=== PATIENT | male | born 1990 | race Caucasian/White ===

== ENCOUNTER 2016-09-09 13:31 | Emergency (ER) | payer OTHER ==
[~2016-09-09] VITALS: Ht 180.3 cm; Wt 90.0 kg
--- NOTE | 2016-09-09 13:45 | PD ---
HPI Chief Complaint: BA Time Seen by Provider: 13:45 Travel History International Travel<30 days: No Contact w/Intl Traveler<30days: No Traveled to known affect area: No History of Present Illness HPI 25-year-old male presents to the emergency department as a transfer Snider act from [facility]. Patient states he is not suicidal but would like detox. He has relapsed on cocaine and alcohol. States that he did make suicidal statements last evening while under the influence of alcohol but truly just wants detox. Denies any acute medical needs at this time. [facility] Past Medical History Medical History: Denies Significant Hx Social History Alcohol Use: Yes Tobacco Use: Yes Substance Use: Yes Review of Systems Except as stated in HPI: all other systems reviewed are Neg Physical Exam Narrative GENERAL: Alert male patient, in no acute distress SKIN: Focused skin assessment warm/dry. HEAD: Atraumatic. Normocephalic. EYES: Pupils equal and round. No scleral icterus. No injection or drainage. ENT: No nasal bleeding or discharge. Mucous membranes pink and moist. NECK: Trachea midline. No JVD. CARDIOVASCULAR: Regular rate and rhythm. No murmur appreciated. RESPIRATORY: No accessory muscle use. Clear to auscultation. Breath sounds equal bilaterally. GASTROINTESTINAL: Abdomen soft, non-tender, nondistended. Hepatic and splenic margins not palpable. MUSCULOSKELETAL: No obvious deformities. No clubbing. No cyanosis. No edema. NEUROLOGICAL: Awake and alert. No obvious cranial nerve deficits. Motor grossly within normal limits. Normal speech. Data Data Last Documented VS Vital Signs Date Time Temp Pulse Resp B/P Pulse Ox O2 Delivery O2 Flow Rate FiO2 09/09/16 14:30 75 16 141/75 100 09/09/16 13:52 98.6 Orders Psych Screen (09/09/16 13:45) [facility] Medical Decision Making Medical Screen Exam Complete: Yes Emergency Medical Condition: Yes Medical Record Reviewed: Yes Differential Diagnosis Substance abuse versus mood disorder versus personality disorder versus adjustment reaction disorder Narrative Course 25-year-old male presents to the emergency department as a transfer from [place] under a Snider act. Patient adamantly denies suicidal or homicidal ideations. He is medically cleared there to see psychiatry here. Dr. De La Cruz has seen and evaluated the patient. Please refer to his documentation. Patient will be discharged at this time, encouraged to seek detox. He agrees to return immediately with any acute worsening of symptoms. Diagnosis Primary Impression: Substance abuse Additional Impression: Substance induced mood disorder Referrals: [facility] (Out patient) [facility] Patient Instructions: General Instructions, Medical Clearance for Substance Abuse Treatment (ED) Additional Instructions: Seek assistance through [facility] and/or [facility] or other detox facility to stop using illegal drugs Return to ED with acute worsening of symptoms Med/Other Pt SpecificInfo: No Change to Meds Disposition: 01 DISCHARGE HOME Condition: Stable Damaris Hernandez Sep 09, 2016 13:45
[2016-09-09 13:52] VITALS: BP 111/60; PULSE 57; RESP 16; TEMP 98.6; O2SAT 100
[2016-09-09 14:30] VITALS: BP 141/75
--- NOTE | 2016-09-09 15:56 | PD ---
History of Present Illness Chief Complaint: Psychiatric Symptoms Time Seen by Provider: 13:45 Travel History International Travel<30 Days: No Contact w/Intl Traveler<30days: No Known affected area: No Legal Status Legal Status: Snider Act Snider Act Signed By: History of Present Illness: This is a 25-year-old male who was Snider acted for making suicidal comments last night. [facility] and began using crack cocaine again yesterday. Patient states that he had been clean for several months when he did this. He does have a history of substance abuse and has been treated previously at [facility]. At the time of this evaluation the patient was no longer intoxicated and denied any suicidal or homicidal ideation , plan or intent. The patient is requesting detox and rehabilitation at [facility] even though he was only using, by his report, yesterday. This physician discussed the fact that the patient's main problem is substance abuse and the patient agrees. This physician also told the patient we are not a license detox and rehabilitation facility and that the patient needs to return to [facility] if he wants this type of treatment. The patient agrees. He is not making suicidal threats at this time. His cognition is intact and he is able to verbally contract for safety. [facility] Past Medical History Medical History: Denies Significant Hx Psychiatric History Psychiatric History Hx Psychiatric Treatment: Patient reports he has had substance abuse treatment in the past at [facility]. He also reports he has had psychiatric treatment for depression. This physician however feels the patient's depression is approximately 1 day old and is the direct result of him falling off the [facility]. History of Inpatient Treatment: Yes Guns or firearms in home: No Social History Hx Alcohol Use: Yes Hx Tobacco Use: No Hx Substance Use: Yes ("crack") Substance Use Type: Crack Hx of Substance Use Treatment: Yes Review of Systems Except as stated in HPI: all other systems reviewed are Neg Exam Alert: Yes [place]: Person, Place, Date, Situation Mood: Calm Affect: Appropriate Speech: Clear, Logical Eye Contact: Normal Memory Intact: Immediate, Recent, Remote Insight/Judgement Adequate at this time. [facility] Medical Decision Making Medical Record Reviewed: Yes Assessment/Plan Patient's Tylor act is being lifted and he is being referred to [facility] for drug and alcohol treatment. As this is what he requests and this is not a licensed detox and rehabilitation facility, this physician agrees. Patient is not currently suicidal or homicidal and this physician feels he does not meet inpatient psychiatric hospitalization criteria at this time. Furthermore, the patient's interest in returning for substance abuse treatment is indicative of his desire to live. Therefore, least restrictive alternative applies and the patient competently chose to return to [facility]. Orders Psych Screen (09/09/16 13:45) Results Vital Signs Date Time Temp Pulse Resp B/P Pulse Ox O2 Delivery O2 Flow Rate FiO2 09/09/16 14:30 75 16 141/75 100 09/09/16 13:52 98.6 57 16 111/60 100 Diagnosis Primary Impression: Cocaine abuse Referrals: [facility] (Out patient) [facility] Departure Forms: Tests/Procedures Patient Instructions: General Instructions, Medical Clearance for Substance Abuse Treatment (ED) Additional Instructions: Seek assistance through [facility] and/or [facility] or other detox facility to stop using illegal drugs Return to ED with acute worsening of symptoms Disposition: 01 DISCHARGE HOME Condition: Stable Stan De La Cruz MD Sep 09, 2016 15:56
== END 2016-09-09 14:31 | disposition home or self-care (01) ==
LOC: NEPC 13:31
DX: F19.10 Other psychoactive substance abuse, uncomplicated (principal); F19.14 Other psychoactive substance abuse with psychoactive substance-induced mood disorder; F14.10 Cocaine abuse, uncomplicated; Z72.0 Tobacco use
CPT/HCPCS: 99285